=== PATIENT | female | born 1940 | race Caucasian/White ===

== ENCOUNTER 2019-12-18 09:11 | Day surgery (SDC) | payer MEDICARE, OTHER ==
[~2019-12-18 09:11] MED LIST: BUPIVACAINE HCL 0.75% INJ/PF (7.5 MG/1 ML) 10 ML SDV OD PRN; CHONDR SU A NA/HYALUR INTRAOC KIT (SURGICARE) ONE; EPINEPHRINE INJ/PF 1 MG/1 ML AMPULE ONE; FENTANYL CITRATE INJ/PF 100 MCG/2 ML AMPUL ONE; KETOROLAC TROMETHAMINE 0.45% 4 DROP/0.4 ML DROPERETTE OD PRN; LIDOCAINE 1% INJ-PF (10 MG/ML) 30 ML SDV ONE; LIDOCAINE 4% INJ/PF (40 MG/ML) 5 ML AMPUL OD PRN; MIDAZOLAM 2 MG/2 ML INJ ONE; ONDANSETRON HCL INJ/PF 4 MG/2 ML SDV ONE
[2019-12-18] MEDS: TETRACAINE HCL 0.5% OPH SOLN 4 ML OD PRN ×3 (09:31→10:16)
[2019-12-18] MEDS: CYCLOPENTOLATE 0.2%/PHENYLEPHRINE 1% OPH SOLN 2 ML OD PRN ×3 (09:32→09:57)
[2019-12-18] MEDS: TROPICAMIDE 1% OPH SOLN 15 ML OD PRN ×3 (09:32→09:57)
[2019-12-18] MEDS: BESIFLOXACIN HCL 0.6% OPH SUSP 5 ML BOTTLE OD PRN ×4 (09:32→10:42)
[2019-12-18] MEDS: PREDNISOLONE ACETATE 1% OPH SUSP 5 ML OD PRN ×2 (10:42)
[2019-12-18] MEDS: DORZOLAMIDE HCL 2%/TIMOLOL MALEAT 0.5% OPH SOLN 10 ML OD PRN ×2 (10:42)
--- NOTE | 2019-12-18 13:26 | Operative Report ---
Operative Report-[facility] Operative Report: DATE OF SURGERY: 12/18/2019 PREOPERATIVE DIAGNOSIS: CATARACT, RIGHT EYE. POSTOPERATIVE DIAGNOSIS: CATARACT,RIGHT EYE. PROCEDURE PERFORMED: PHACOEMULSIFICATION WITH TORIC POSTERIOR CHAMBER INTRAOCULAR LENS, RIGHT EYE. Intraocular Lens Model : [id number] 17.5 Total Phaco Time: 7.33 CDE SURGEON: MAINE PATEL MD ANESTHESIA: TOPICAL WITH MAC. INDICATIONS FOR SURGERY: Difficulty with night driving PROCEDURE: The patient was brought to the Operating Room and placed in a seated position. a lid speculum was placed in the eye. the 0.180, and 270 degree axis of the cornea was marked with a toric marker. the patien was place in a reclining position. Following tetracaine drops, topical anesthesia was administered. This consisted of instrument wipe pledgets soaked in a solution of 4% Xylocaine mixed with 0.75% Marcaine in a 1:2 ratio. A 2 x 1 cm pledget was placed in the superior fornix. A 1 x 1 cm pledget was placed in the inferior fornix. The eye was patched shut for 5 minutes. The patch was removed. The eye was sterilely prepped and draped in the usual manner. Lid speculum was placed in the eye. The pledgets were removed. 4-0 black silk sutures were placed around the superior and the inferior rectus muscles to be used as traction. A conjunctival peritomy was made at the 10 o'clock position. Hemostasis was obtained with bipolar cautery. A posterior limbal groove was created using a crescent knife and dissected anteriorly towards the cornea. A sharp point blade was used to create a paracentesis site at the 2 o'clock position. 0.2 cc non preserved Lidocaine was injected into the anterior chamber. A 2.4 mm keratome was used to enter the anterior chamber through the groove. Viscoelastic was injected into the anteriorchamber. An anterior capsulotomy was performed using Utrata forceps in acapsulorrhexis fashion. Hydrodissection and hydrodelineation were performed. Phacoemulsification was performed in [id number] technique. Following this, the I/A unit was used to remove residual cortex. Viscoelastic was injected into the capsular bag. The Intraocular lens was placed in the capsular bag. The 5 degree axis of the eye was marked using a toric marker and the previously marked sites as reference. The lens was centered at this axis. The I/A unit was used to remove residual viscoelastic. The wound was seen to be watertight under high and low pressure, and no sutures were placed. The intraocular lens was well centered. The pressure was adjusted in the eye to normal pressure. The 4-0 black silk sutures and lid speculum were removed. The eye was shielded after Besivance and Cosopt drops were placed. The patient tolerated the procedure well and was sent to the Recovery Room in good condition.
== END 2019-12-18 11:15 | disposition home or self-care (01) ==
LOC: SC 09:11
PROVIDERS: ATTEND Ophthalmology
DX: H25.811 Combined forms of age-related cataract, right eye (principal); E11.36 Type 2 diabetes mellitus with diabetic cataract; I51.9 Heart disease, unspecified; H35.363 Drusen (degenerative) of macula, bilateral; H04.123 Dry eye syndrome of bilateral lacrimal glands; Z91.040 Latex allergy status
CPT/HCPCS: 66984; V2787; J2250; J3490 ×5; A9270; J0171; J2405; J3010

== ENCOUNTER 2020-01-22 06:38 | Day surgery (SDC) | payer MEDICARE, OTHER ==
[~2020-01-22 06:38] MED LIST changes: -BUPIVACAINE HCL 0.75% INJ/PF (7.5 MG/1 ML) 10 ML SDV OD PRN; +BUPIVACAINE HCL 0.75% INJ/PF (7.5 MG/1 ML) 10 ML SDV OS PRN; -CHONDR SU A NA/HYALUR INTRAOC KIT (SURGICARE) ONE; -EPINEPHRINE INJ/PF 1 MG/1 ML AMPULE ONE; -FENTANYL CITRATE INJ/PF 100 MCG/2 ML AMPUL ONE; -KETOROLAC TROMETHAMINE 0.45% 4 DROP/0.4 ML DROPERETTE OD PRN; +KETOROLAC TROMETHAMINE 0.45% 4 DROP/0.4 ML DROPERETTE OS PRN; -LIDOCAINE 1% INJ-PF (10 MG/ML) 30 ML SDV ONE; -LIDOCAINE 4% INJ/PF (40 MG/ML) 5 ML AMPUL OD PRN; +LIDOCAINE 4% INJ/PF (40 MG/ML) 5 ML AMPUL OS PRN; -MIDAZOLAM 2 MG/2 ML INJ ONE; -ONDANSETRON HCL INJ/PF 4 MG/2 ML SDV ONE
[2020-01-22] MEDS: BESIFLOXACIN HCL 0.6% OPH SUSP 5 ML BOTTLE OS PRN ×4 (07:05→08:26)
[2020-01-22] MEDS: TETRACAINE HCL 0.5% OPH SOLN 4 ML OS PRN ×3 (07:05→07:56)
[2020-01-22] MEDS: TROPICAMIDE 1% OPH SOLN 15 ML OS PRN ×3 (07:05→07:15)
[2020-01-22] MEDS: CYCLOPENTOLATE 0.2%/PHENYLEPHRINE 1% OPH SOLN 2 ML OS PRN ×3 (07:05→07:14)
[2020-01-22] MEDS ORDERED: MIDAZOLAM 2 MG/2 ML INJ ONE (07:09)
[2020-01-22] MEDS ORDERED: FENTANYL CITRATE INJ/PF 100 MCG/2 ML AMPUL ONE (07:09)
[2020-01-22] MEDS ORDERED: ONDANSETRON HCL INJ/PF 4 MG/2 ML SDV ONE (07:09)
[2020-01-22] MEDS: EPINEPHRINE INJ/PF 1 MG/1 ML AMPULE ONE ×2 (08:10→08:13)
[2020-01-22] MEDS: LIDOCAINE 1% INJ-PF (10 MG/ML) 30 ML SDV ONE ×2 (08:10→08:13)
[2020-01-22] MEDS: CHONDR SU A NA/HYALUR INTRAOC KIT (SURGICARE) ONE ×2 (08:10→08:13)
[2020-01-22] MEDS: PREDNISOLONE ACETATE 1% OPH SUSP 5 ML OS PRN ×2 (08:26)
[2020-01-22] MEDS: DORZOLAMIDE HCL 2%/TIMOLOL MALEAT 0.5% OPH SOLN 10 ML OS PRN ×2 (08:26)
--- NOTE | 2020-01-22 12:39 | Operative Report ---
Operative Report-[facility] Operative Report: DATE OF SURGERY: 01/22/2020 PREOPERATIVE DIAGNOSIS: CATARACT, LEFT EYE. POSTOPERATIVE DIAGNOSIS: CATARACT, LEFT EYE. PROCEDURE PERFORMED: PHACOEMULSIFICATION WITH TORIC POSTERIOR CHAMBER INTRAOCULAR LENS, LEFT EYE. Intraocular Lens Model : MX 60 T125 20.5 Total Phaco Time: 6.46 CDE SURGEON: MAINE PATEL MD ANESTHESIA: TOPICAL WITH MAC. INDICATIONS FOR SURGERY: Difficulty with night driving PROCEDURE: The patient was brought to the Operating Room and placed in a seated position. a lid speculum was placed in the eye. the 0.180, and 270 degree axis of the cornea was marked with a toric marker. the patien was place in a reclining position. Following tetracaine drops, topical anesthesia was administered. This consisted of instrument wipe pledgets soaked in a solution of 4% Xylocaine mixed with 0.75% Marcaine in a 1:2 ratio. A 2 x 1 cm pledget was placed in the superior fornix. A 1 x 1 cm pledget was placed in the inferior fornix. The eye was patched shut for 5 minutes. The patch was removed. The eye was sterilely prepped and draped in the usual manner. Lid speculum was placed in the eye. The pledgets were removed. 4-0 black silk sutures were placed around the superior and the inferior rectus muscles to be used as traction. A conjunctival peritomy was made at the 10 o'clock position. Hemostasis was obtained with bipolar cautery. A posterior limbal groove was created using a crescent knife and dissected anteriorly towards the cornea. A sharp point blade was used to create a parac entesis site at the 2 o'clock position. 0.2 cc non preserved Lidocaine was injected into the anterior chamber. A 2.4 mm keratome was used to enter the anterior chamber through the groove. Viscoelastic was injected into the anteriorchamber. An anterior capsulotomy was performed using Utrata forceps in acapsulorrhexis fashion. Hydrodissection and hydrodelineation were performed. Phacoemulsification was performed in [id number] technique. Following this, the I/A unit was used to remove residual cortex. Viscoelastic was injected into the capsular bag. The Intraocular lens was placed in the capsular bag. The 167 degree axis of the eye was marked using a toric marker and the previously marked sites as reference. The lens was centered at this axis. The I/A unit was used to remove residual viscoelastic. The wound was seen to be watertight under high and low pressure, and no sutures were placed. The intraocular lens was well centered. The pressure was adjusted in the eye to normal pressure. The 4-0 black silk sutures and lid speculum were removed. The eye was shielded after Besivance and Cosopt drops were placed. The patient tolerated the procedure well and was sent to the Recovery Room in good condition.
== END 2020-01-22 09:00 | disposition home or self-care (01) ==
LOC: SC 06:38
PROVIDERS: ATTEND Ophthalmology
DX: H25.812 Combined forms of age-related cataract, left eye (principal); Z96.1 Presence of intraocular lens
CPT/HCPCS: 66984; 00142; V2787; J2250; J3490 ×5; A9270; J0171; J2405; 142; J3010